=== PATIENT | male | born 1965 | race Caucasian/White ===

== ENCOUNTER → 2024-04-13 | Day surgery (SDC) | payer BC ==
[~2024-04-13] MED LIST: ACETAMINOPHEN 1000 MG/100 ML IV ONE; BUSPIRONE HCL10 MG PO; DEXAMETHASONE SOD PHOS 10 MG/1 ML VIAL ONE; DEXMEDETOMIDINE HCL 200 MCG/2 ML VIAL ONE; EPINEPHRINE HCL 1:1000 1ML 1 MG/ML AMP ONE; FENTANYL CITRATE/PF 100MCG/2 ML INJ ONE; LIDOCAINE 1% W/EPINEPHRINE 20 ML VIAL ONE; LIDOCAINE HCL (LTA) 4 ML SOLN ONE; LIDOCAINE HCL 2% LOCAL INJ 5 ML SDV VIAL INJ ONE; LIPITOR20 MG PO; LISINOPRIL20 MG PO; MIDAZOLAM HCL 2 MG/2 ML VIAL ONE; ONDANSETRON HCL INJ 2MG/ML 2ML 2 MG/ML VIAL ONE; PANTOPRAZOLE SO40 MG PO; PROPOFOL IV EMULSION 10 MG/ML 20 ML VIAL ONE; ROCURONIUM BROMIDE 10 MG/ML 5ML VIAL IV ONE; SEVOFLURANE INHAL SOLN 250 ML PEN BTL ONE; SUGAMMADEX SODIUM 200 MG/2 ML VIAL IV ONE; VENTOLIN HFA18 GM INH; VITAMIN D250 MCG PO
[2024-04-13] MEDS: LACTATED RINGER'S 1,000 ML ONE (06:11)
[2024-04-13 09:20] VITALS: BP 120/65; PULSE 79; RESP 16; O2SAT 97
== END | disposition home or self-care (01) ==
LOC: OR 05:30
PROVIDERS: ATTEND Otolaryngology Otolaryngology/Facial Plastic Surgery
DX: J38.3 Other diseases of vocal cords (principal); R49.0 Dysphonia; R07.0 Pain in throat; H92.01 Otalgia, right ear; R09.89 Other specified symptoms and signs involving the circulatory and respiratory systems; I10 Essential (primary) hypertension; I25.2 Old myocardial infarction; E78.5 Hyperlipidemia, unspecified; K27.9 Peptic ulcer, site unspecified, unspecified as acute or chronic, without hemorrhage or perforation; F17.210 Nicotine dependence, cigarettes, uncomplicated; F10.90 Alcohol use, unspecified, uncomplicated; F41.9 Anxiety disorder, unspecified; F32.A Depression, unspecified; Z86.73 Personal history of transient ischemic attack (TIA), and cerebral infarction without residual deficits; Z79.899 Other long term (current) drug therapy; Z79.82 Long term (current) use of aspirin
CPT/HCPCS: 31536; 31622; 43191; 71046; 88305; 93005; J0131; J0171; J1100; J2001; J2250; J2405; J2704; J3010; J7121

== ENCOUNTER → 2024-07-20 | Day surgery (SDC) | payer BC ==
[~2024-07-20] MED LIST changes: -ACETAMINOPHEN 1000 MG/100 ML IV ONE; -DEXAMETHASONE SOD PHOS 10 MG/1 ML VIAL ONE; -DEXMEDETOMIDINE HCL 200 MCG/2 ML VIAL ONE; -EPINEPHRINE HCL 1:1000 1ML 1 MG/ML AMP ONE; +ESMOLOL HCL 100MG/10ML 10 MG/ML VIAL ONE; +KETAMINE 50MG/5ML SYR ONE; +LABETALOL HCL 20 ML ONE; +LACTATED RINGER'S 1,000 ML ONE; -LIDOCAINE 1% W/EPINEPHRINE 20 ML VIAL ONE; -LIDOCAINE HCL (LTA) 4 ML SOLN ONE; -MIDAZOLAM HCL 2 MG/2 ML VIAL ONE; -ONDANSETRON HCL INJ 2MG/ML 2ML 2 MG/ML VIAL ONE; +ROCURONIUM BROMIDE 1 ML IV ONE; -ROCURONIUM BROMIDE 10 MG/ML 5ML VIAL IV ONE; -SEVOFLURANE INHAL SOLN 250 ML PEN BTL ONE; +SUCCINYLCHOLINE CHLORIDE 20 MG/ML 10ML VIAL ONE
[2024-07-20 15:30] VITALS: BP 122/87; PULSE 96; RESP 19; O2SAT 98
== END | disposition home or self-care (01) ==
LOC: OR 10:09
PROVIDERS: ATTEND Otolaryngology Otolaryngology/Facial Plastic Surgery
DX: J38.3 Other diseases of vocal cords (principal); R49.0 Dysphonia; I10 Essential (primary) hypertension; E78.5 Hyperlipidemia, unspecified; R06.02 Shortness of breath; K21.9 Gastro-esophageal reflux disease without esophagitis; K28.9 Gastrojejunal ulcer, unspecified as acute or chronic, without hemorrhage or perforation; F41.9 Anxiety disorder, unspecified; F32.A Depression, unspecified; F17.210 Nicotine dependence, cigarettes, uncomplicated; Z79.899 Other long term (current) drug therapy
CPT/HCPCS: 88305; 93005; J0330; J2003